=== PATIENT | male | born 1985 | race African-American/Black ===

== ENCOUNTER 2018-01-13 15:59 | Outpatient (CLI) | payer OTHER ==
--- NOTE | 2018-01-13 22:15 | MRI Report ---
EXAM: LEFT KNEE MRI WITHOUT CONTRAST EXAM DATE: 01/13/2018 04:49 PM. CLINICAL HISTORY: Left knee pain for 6 years. Pain around the patella. COMPARISON: None. TECHNIQUE: Multiplanar, multisequence T1-weighted and fluid-sensitive sequences of the knee without c ontrast. Other: None. FINDINGS: Bones: No fractures or subluxations. No marrow edema. No bone lesions. Articular Cartilage: Unremarkable. Medial Meniscus: The medial meniscus is intact. Lateral Meniscus: The lateral meniscus is intact. Cruciate Ligaments: The anterior and posterior cruciate ligaments are intact. Collateral Ligaments: The medial collateral and lateral collateral ligamentous structures are intact. Tendons: The quadriceps, patellar, semimembranosus, and popliteus tendons are unremarkable. Musculature: No edema or fatty atrophy. Other: No effusion. Tiny popliteal cyst. No loose bodies. The medial and lateral retinacula are inta ct. The subcutaneous tissues and fat pads are unremarkable. IMPRESSION: 1. Tiny popliteal cyst. 2. Otherwise, unremarkable MRI of the left knee. [facility] MUSCULOSKELETAL RADIOLOGY SECTION Referring Provider Line: [phone] SITE ID: [id number]
== END 2018-01-13 16:00 | disposition home or self-care (01) ==
LOC: DI 15:59
PROVIDERS: ATTEND Orthopaedic Surgery
DX: M71.22 Synovial cyst of popliteal space [Baker], left knee (principal)

== ENCOUNTER 2018-01-28 13:53 | Outpatient (CLI) | payer OTHER | END 2018-01-28 13:54 | disposition home or self-care (01) | LOC: SC 13:53 | PROVIDERS: ATTEND Internal Medicine Pulmonary Disease | DX: G47.33 Obstructive sleep apnea (adult) (pediatric) (principal) | CPT/HCPCS: 99203; 99212 ==